=== PATIENT | female | born 1985 | race Hispanic/Latino ===

== ENCOUNTER → 2018-01-01 | Outpatient (CLI) | payer MEDICAID ==
[~2018-01-01] MED LIST: DOCO200C5 PO
== END | disposition home or self-care (01) ==
LOC: RAH 10:31
PROVIDERS: ATTEND Family Medicine
DX: R10.9 Unspecified abdominal pain (principal)
CPT/HCPCS: 76700

== ENCOUNTER → 2018-01-21 | Outpatient (CLI) | payer MEDICAID | END | disposition home or self-care (01) | LOC: RAH 11:14 | PROVIDERS: ATTEND Family Medicine | DX: N21.1 Calculus in urethra (principal) | CPT/HCPCS: 74018 ==

== ENCOUNTER 2018-02-01 00:36 | Emergency (ER) | payer MEDICAID ==
[2018-02-01 01:18] LABS: APPEARANCE,URINE Clear (CLEAR); BILIRUBIN,URINE Negative (NEGATIVE); COLOR,URINE STRAW (YELLOW); GLUCOSE, URINE (UA) Negative (NEGATIVE); HCG,QUAL RESULT POSITIVE (NEGATIVE); KETONES,URINE Negative (NEGATIVE); LEUKOCYTE ESTERASE ,URINE Negative (NEGATIVE); NITRATE,URINE Negative (NEGATIVE); OCCULT BLOOD,URINE Trace (NEGATIVE); PROTEIN,URINE Negative (NEGATIVE); UROBILINOGEN,URINE 0.2 mg/dL (0.2-1.0)
[2018-02-01 01:22] LABS: AMPHET/METH SCREEN,URINE NEGATIVE (NEGATIVE); BARBITURATE SCREEN, URINE NEGATIVE (NEGATIVE); BENZODIAZEPINES SCREEN,URINE NEGATIVE (NEGATIVE); CANNABINOID SCREEN,URINE NEGATIVE (NEGATIVE); COCAINE SCREEN,URINE NEGATIVE (NEGATIVE); OPIATE SCREEN,URINE NEGATIVE (NEGATIVE); PHENCYCLIDINE SCREEN,URINE NEGATIVE (NEGATIVE)
[2018-02-01 01:31] LABS: BACTERIA,URINE Rare /HPF (None Seen); RBC,URINE None Seen /HPF (0-1); SQUAMOUS EPITHELIAL CELL,UR 0-2 /LPF (0-2); WBC,URINE 0-1 /HPF (0-1)
[2018-02-01 01:46] LABS: HEMATOCRIT 40.2 % (36-48); MEAN CORPUSCULAR HEMOGLOBIN 31.1 pg (27.0-33.0); MEAN CORPUSCULAR HGB CONC 34.2 g/dL (32.0-36.0); MEAN CORPUSCULAR VOLUME 90.8 fL (79-99); PLATELET COUNT (AUTO) 281 K/uL (130-400); RED BLOOD CELL COUNT(AUTO) 4.42 MIL/uL (4.00-5.50); RED CELL DISTRIBUTION WIDTH 12.5 % (11.0-15.5); WHITE BLOOD COUNT (AUTO) 9.1 K/uL (4.8-10.8)
[2018-02-01 01:54] LABS: CREATININE 0.6 mg/dL (0.5-1.5); POTASSIUM 3.8 mmol/L (3.5-5.1)
[2018-02-01 02:04] LABS: ALBUMIN 3.5 g/dL (3.5-5.0); BILIRUBIN,TOTAL 0.2 mg/dL (0.2-1.0)
[2018-02-01 02:06] LABS: LYMPHOCYTES % (MANUAL) 20 % (22-44); MAN.DIFF COMMENT-IMPRESSION MANUAL DIFFERENTIAL; MONOCYTES % (MANUAL) 4 % (2-9); SEGMENTED NEUTROPHILS % 76 % (40-70)
[2018-02-01 02:07] LABS: PLATELET MORPHOLOGY COMMENT ADEQUATE
== END 2018-02-01 03:55 | disposition home or self-care (01) ==
LOC: EDH 00:36
DX: O20.0 Threatened abortion (principal); O99.331 Smoking (tobacco) complicating pregnancy, first trimester; Z3A.01 Less than 8 weeks gestation of pregnancy
CPT/HCPCS: 36415; 76801; 80053; 80305; 81001; 81025; 83033; 84702; 85025; 86900; 86901; 99285; J2791

== ENCOUNTER 2018-02-03 13:39 | Emergency (ER) | payer MEDICAID ==
[2018-02-03 14:49] LABS: BASOPHILS % (AUTO) 0.4 % (0.0-5.0); EOSINOPHILS % (AUTO) 0.4 % (0.0-8.0); HEMATOCRIT 39.3 % (36-48); LYMPHOCYTES % (AUTO) 17.3 % (21.0-51.0); MEAN CORPUSCULAR HEMOGLOBIN 31.7 pg (27.0-33.0); MEAN CORPUSCULAR HGB CONC 35.1 g/dL (32.0-36.0); MEAN CORPUSCULAR VOLUME 90.5 fL (79-99); MONOCYTES % (AUTO) 5.9 % (3.0-13.0); PLATELET COUNT (AUTO) 316 K/uL (130-400); RED BLOOD CELL COUNT(AUTO) 4.35 MIL/uL (4.00-5.50); RED CELL DISTRIBUTION WIDTH 12.7 % (11.0-15.5); WHITE BLOOD COUNT (AUTO) 8.4 K/uL (4.8-10.8)
[2018-02-03] MEDS ORDERED: SODIUM CHLORIDE 0.9% 1000ML 1,000 ML IV ONE (14:49)
[2018-02-03] MEDS ORDERED: ONDANSETRON HCL MDV 20ML 2 MG/ML VIAL ONE (14:49)
[2018-02-03] MEDS ORDERED: MORPHINE SULFATE 4 MG/1ML SYG ONE (14:49)
[2018-02-03 15:01] LABS: CREATININE 0.6 mg/dL (0.5-1.5); POTASSIUM 3.9 mmol/L (3.5-5.1)
[2018-02-03 15:27] LABS: HCG,QUAL RESULT POSITIVE (NEGATIVE)
[2018-02-03 15:30] LABS: APPEARANCE,URINE Clear (CLEAR); BILIRUBIN,URINE Negative (NEGATIVE); COLOR,URINE Yellow (YELLOW); GLUCOSE, URINE (UA) Negative (NEGATIVE); KETONES,URINE Negative (NEGATIVE); LEUKOCYTE ESTERASE ,URINE Negative (NEGATIVE); NITRATE,URINE Negative (NEGATIVE); OCCULT BLOOD,URINE Large (NEGATIVE); PH,URINE 6.5 (5.0-8.0); PROTEIN,URINE Negative (NEGATIVE); UROBILINOGEN,URINE 0.2 mg/dL (0.2-1.0)
[2018-02-03 15:47] LABS: BACTERIA,URINE Few /HPF (None Seen)
[2018-02-04] MEDS ORDERED: DOCO200C5 PO (13:19)
== END 2018-02-03 17:57 | disposition home or self-care (01) ==
LOC: EDH 13:39
DX: O20.9 Hemorrhage in early pregnancy, unspecified (principal); R10.2 Pelvic and perineal pain; O99.331 Smoking (tobacco) complicating pregnancy, first trimester; Z3A.01 Less than 8 weeks gestation of pregnancy
CPT/HCPCS: 36415; 76817; 80048; 81001; 81025; 84702; 85025; 96361; 96374; 96375; 99285; J2270; J7030

== ENCOUNTER 2018-02-04 12:07 | Day surgery (SDC) | payer MEDICAID ==
[2018-02-04] VITALS (17 sets, daily range): BP systolic 109–148; BP diastolic 59–84
[~2018-02-04] VITALS: Ht 157.5 cm; Wt 84.4 kg
[2018-02-04] MEDS ORDERED: FLU VACC QS2017-18 36MOS UP/PF 60 MCG/0.5 ML ML IM ONE ×2 (12:30→23:30)
[2018-02-04] MEDS ORDERED: DOCO200C5 PO (13:19)
[2018-02-04] MEDS ORDERED: LIDOCAINE PF 2% 5ML ABBOJECT ONE (16:01)
[2018-02-04] MEDS ORDERED: SODIUM CHLORIDE 0.9% 10 ML VIAL ONE (16:01)
[2018-02-04] MEDS ORDERED: DEXAMETHASONE SOD PHOSPHATE 10MG/ML 1ML VIAL ONE (16:01)
[2018-02-04] MEDS ORDERED: NEOSTIGMINE METHYLSULFATE 1MG/ML IV ONE (16:01)
[2018-02-04] MEDS ORDERED: ONDANSETRON HCL MDV 20ML 2 MG/ML VIAL ONE (16:01)
[2018-02-04] MEDS ORDERED: GLYCOPYRROLATE 0.2 MG/ML 5 ML VIAL ONE (16:01)
[2018-02-04] MEDS ORDERED: LIDOCAINE HCL MPF 1% 5ML VIAL ONE (16:01)
[2018-02-04 16:02] LABS: HEMATOCRIT 38.7 % (36-48); MEAN CORPUSCULAR HEMOGLOBIN 30.6 pg (27.0-33.0); MEAN CORPUSCULAR HGB CONC 34.2 g/dL (32.0-36.0); MEAN CORPUSCULAR VOLUME 89.6 fL (79-99); PLATELET COUNT (AUTO) 325 K/uL (130-400); RED BLOOD CELL COUNT(AUTO) 4.32 MIL/uL (4.00-5.50); RED CELL DISTRIBUTION WIDTH 12.8 % (11.0-15.5); WHITE BLOOD COUNT (AUTO) 7.6 K/uL (4.8-10.8)
[2018-02-04] MEDS ORDERED: LIDOCAINE HCL 2% JELLY 5 ML ONE (16:02)
[2018-02-04] MEDS ORDERED: LIDOCAINE HCL 4% LTA SOL 4 ML VIAL ONE (16:02)
[2018-02-04] MEDS ORDERED: PROPOFOL 10 MG/ML 20ML VIAL IV ONE (16:02)
[2018-02-04] MEDS ORDERED: MIDAZOLAM HCL 1 MG/ML 2ML VIAL ONE (16:02)
[2018-02-04] MEDS ORDERED: ROCURONIUM BROMIDE 10MG/1ML 5ML VL ONE (16:02)
[2018-02-04] MEDS ORDERED: FENTANYL CITRATE PF 50 MCG/1 ML 5ML AMP IV ONE (16:02)
[2018-02-04] MEDS ORDERED: PROMETHAZINE HCL 25 MG/ML 1ML AMPULE IM ONE (17:07)
[2018-02-04] MEDS ORDERED: MEPERIDINE-PF 25 MG/ML SYG ONE ×2 (17:07→17:28)
[2018-02-04] MEDS ORDERED: ACETAMINOPHEN-CODEINE 300/30MG TAB PO PRN (18:00)
[2018-02-04] MEDS: MEPERIDINE-PF 50 MG/ML SYG IM SCH ×2 (20:37→23:41)
[2018-02-05] MEDS ORDERED: FLU VACC QS2017-18 36MOS UP/PF 60 MCG/0.5 ML ML IM ONE (10:00)
== END 2018-02-04 23:37 | disposition home or self-care (01) ==
LOC: DAH 12:07 → WSH 12:15 → DAH 23:37
PROVIDERS: ATTEND Obstetrics & Gynecology
DX: O00.101 Right tubal pregnancy without intrauterine pregnancy (principal); Z79.899 Other long term (current) drug therapy
CPT/HCPCS: 36415; 59151; 85027; 86850; 86870; 86900; 86901; 88305; A4215; A4344; A4510; A4606; A4649 ×3; A4930; C1769 ×3; J1100; J2001; J2175 ×3; J2250; J2550; J2704; J2710; J3010; J3490 ×3; J7120; Q2038

== ENCOUNTER 2018-09-30 13:41 | Emergency (ER) | payer MEDICAID ==
[2018-09-30 14:47] LABS: BASOPHILS % (AUTO) 0.7 % (0.0-5.0); EOSINOPHILS % (AUTO) 0.8 % (0.0-8.0); HEMATOCRIT 43.1 % (36-48); LYMPHOCYTES % (AUTO) 27.4 % (21.0-51.0); MEAN CORPUSCULAR HEMOGLOBIN 31.5 pg (27.0-33.0); MEAN CORPUSCULAR HGB CONC 33.7 g/dL (32.0-36.0); MEAN CORPUSCULAR VOLUME 93.4 fL (79-99); MONOCYTES % (AUTO) 5.7 % (3.0-13.0); NEUTROPHILS % (AUTO) 65.4 % (40.0-77.0); PLATELET COUNT (AUTO) 240 K/uL (130-400); RED BLOOD CELL COUNT(AUTO) 4.61 MIL/uL (4.00-5.50); RED CELL DISTRIBUTION WIDTH 13.1 % (11.0-15.5); WHITE BLOOD COUNT (AUTO) 5.3 K/uL (4.8-10.8)
[2018-09-30 14:58] LABS: CREATININE 0.8 mg/dL (0.5-1.5); POTASSIUM 3.6 mmol/L (3.5-5.1)
[2018-09-30 15:05] LABS: APPEARANCE,URINE Clear (CLEAR); BILIRUBIN,URINE Negative (NEGATIVE); COLOR,URINE Dark Yellow (YELLOW); GLUCOSE, URINE (UA) Negative (NEGATIVE); KETONES,URINE Trace mg/dL (NEGATIVE); LEUKOCYTE ESTERASE ,URINE Negative (NEGATIVE); NITRATE,URINE Negative (NEGATIVE); OCCULT BLOOD,URINE Moderate (NEGATIVE); PROTEIN,URINE Negative (NEGATIVE)
[2018-09-30 15:06] LABS: ALBUMIN 3.7 g/dL (3.5-5.0); BILIRUBIN,TOTAL 0.5 mg/dL (0.2-1.0); TOTAL PROTEIN, SERUM 7.2 g/dL (6.0-8.3)
[2018-09-30] MEDS ORDERED: ACETAMINOPHEN 325 MG TAB ONE (15:07)
[2018-09-30 15:40] LABS: BACTERIA,URINE Few /HPF (None Seen); RBC,URINE None Seen /HPF (0-1)
[2018-09-30 15:41] LABS: CALCIUM OXALATE CRYSTALS,UR Few /LPF (None Seen); MUCUS,URINE Many LPF (None Seen)
== END 2018-09-30 16:04 | disposition home or self-care (01) ==
LOC: EDH 13:41
DX: S30.1XXA Contusion of abdominal wall, initial encounter (principal); S40.011A Contusion of right shoulder, initial encounter; F12.10 Cannabis abuse, uncomplicated; Z72.0 Tobacco use; W51.XXXA Accidental striking against or bumped into by another person, initial encounter; Y93.89 Activity, other specified; Y92.098 Other place in other non-institutional residence as the place of occurrence of the external cause; Y99.8 Other external cause status
CPT/HCPCS: 36415; 76817; 80053; 81001; 84702; 85025; 86900; 86901

== ENCOUNTER 2019-02-01 14:39 | Emergency (ER) | payer MEDICAID ==
[2019-02-01] MEDS ORDERED: HYDROXYZINE HCL 25 MG TABLET ONE (15:34)
== END 2019-02-01 16:16 | disposition home or self-care (01) ==
LOC: EDH 14:39
DX: F41.1 Generalized anxiety disorder (principal); F32.9 Major depressive disorder, single episode, unspecified; F98.8 Other specified behavioral and emotional disorders with onset usually occurring in childhood and adolescence; Z72.0 Tobacco use

== ENCOUNTER 2019-04-28 17:55 | Emergency (ER) | payer MEDICAID ==
[2019-04-28] MEDS ORDERED: AMOXICILLIN/POTASSIUM CLAV 875-125 TABLET PO ONE (18:59)
[2019-04-28] MEDS ORDERED: TETANUS/DIPHTHERIA TOXOID [ADULT] 0.5 ML VIAL IM ONE (19:00)
== END 2019-04-28 19:09 | disposition home or self-care (01) ==
LOC: EDH 17:55
DX: S01.81XA Laceration without foreign body of other part of head, initial encounter (principal); F41.9 Anxiety disorder, unspecified; F32.9 Major depressive disorder, single episode, unspecified; W54.0XXA Bitten by dog, initial encounter; Y93.89 Activity, other specified; Y92.098 Other place in other non-institutional residence as the place of occurrence of the external cause; Y99.8 Other external cause status
CPT/HCPCS: 90471; 90714

== ENCOUNTER 2023-02-15 15:01 | Emergency (ER) | payer BC, OTHER ==
[~2023-02-15] VITALS: Ht 160 cm; Wt 73.9 kg
[2023-02-15 15:47] LABS: BASOPHILS % (AUTO) 0.7 % (0.0-5.0); EOSINOPHILS % (AUTO) 1.2 % (0.0-8.0); HEMATOCRIT 41.5 % (36-48); MEAN CORPUSCULAR HGB CONC 32.5 g/dL (32.0-36.0); MEAN CORPUSCULAR VOLUME 92.2 fL (79-99); MONOCYTES % (AUTO) 6.3 % (3.0-13.0); NEUTROPHILS % (AUTO) 63.5 % (40.0-77.0); PLATELET COUNT (AUTO) 300 K/uL (130-400); RED CELL DISTRIBUTION WIDTH 12.3 % (11.0-15.5); WHITE BLOOD COUNT (AUTO) 5.9 K/uL (4.8-10.8)
[2023-02-15 16:43] LABS: CREATININE 0.6 mg/dL (0.5-1.5)
[2023-02-15 16:48] LABS: ALBUMIN 3.3 g/dL (3.5-5.0); TOTAL PROTEIN, SERUM 6.2 g/dL (6.0-8.3)
[2023-02-15 17:45] VITALS: BP 122/64
== END 2023-02-15 18:50 | disposition home or self-care (01) ==
LOC: EDH 15:01
DX: T78.49XA Other allergy, initial encounter (principal); R07.89 Other chest pain; Z20.822 Contact with and (suspected) exposure to COVID-19; Z98.890 Other specified postprocedural states; X58.XXXA Exposure to other specified factors, initial encounter
CPT/HCPCS: 99285; 71045; 87635; 84484; 80053; 85025; 87804 ×2; 81025; 36415; 93005; C9803

== ENCOUNTER 2023-10-06 08:09 | Emergency (ER) | payer OTHER ==
[~2023-10-06] VITALS: Ht 162.6 cm; Wt 81.6 kg
[2023-10-06 08:13] VITALS: BP 120/80; PULSE 67; RESP 20
[2023-10-06 09:10] LABS: SARS-CoV-2, RNA, NAAT POSITIVE SARS CoV-2 (NEGATIVE)
[2023-10-06 09:13] LABS: BASOPHILS # (AUTO) 0.02 K/uL (0.00-0.20); BASOPHILS % (AUTO) 0.4 % (0.0-5.0); EOSINOPHILS # (AUTO) 0.09 K/uL (0.00-0.70); EOSINOPHILS % (AUTO) 1.9 % (0.0-8.0); HEMATOCRIT 42.5 % (36-48); IMMATURE GRANULOCYTE ABSOLUTE 0.01 K/uL (0-1); LYMPHOCYTES % (AUTO) 41.2 % (21.0-51.0); MEAN CORPUSCULAR HEMOGLOBIN 30.2 pg (27.0-33.0); MEAN CORPUSCULAR HGB CONC 32.7 g/dL (32.0-36.0); MEAN CORPUSCULAR VOLUME 92.2 fL (79-99); MONOCYTES # (AUTO) 0.4 K/uL (0.1-1.0); MONOCYTES % (AUTO) 7.8 % (3.0-13.0); NEUTROPHILS # (AUTO) 2.3 K/uL (1.8-7.7); NEUTROPHILS % (AUTO) 48.5 % (40.0-77.0); PLATELET COUNT (AUTO) 257 K/uL (130-400); RED BLOOD CELL COUNT(AUTO) 4.61 MIL/uL (4.00-5.50); RED CELL DISTRIBUTION WIDTH 12.2 % (11.0-15.5); WHITE BLOOD COUNT (AUTO) 4.7 K/uL (4.8-10.8)
[2023-10-06 09:17] LABS: INFLUENZA TYPE A Negative For Type A (NEGATIVE); INFLUENZA TYPE B Negative For Type B (NEGATIVE)
[2023-10-06 09:18] LABS: CREATININE 0.5 mg/dL (0.5-1.5); POTASSIUM 3.7 mmol/L (3.5-5.1)
[2023-10-06 09:23] LABS: ALBUMIN 3.2 g/dL (3.5-5.0); BILIRUBIN,TOTAL 0.2 mg/dL (0.2-1.0); TOTAL PROTEIN, SERUM 6.6 g/dL (6.0-8.3)
[2023-10-06] MEDS ORDERED: METH4TAB3 PO (13:51)
[2023-10-06] MEDS ORDERED: SOLU-MEDROL 125MG VIAL IM ONE (14:00)
== END 2023-10-06 14:00 | disposition home or self-care (01) ==
LOC: EDH 08:09
DX: U07.1 COVID-19 (principal); J06.9 Acute upper respiratory infection, unspecified; R05.9 Cough, unspecified; M94.0 Chondrocostal junction syndrome [Tietze]; F41.9 Anxiety disorder, unspecified
CPT/HCPCS: 99285; 71045; 87635; 84484; 80053; 85025; 87804 ×2; 36415; 93005; C9803

== ENCOUNTER 2024-05-13 17:23 | Emergency (ER) | payer BC, OTHER ==
[~2024-05-13] VITALS: Ht 160 cm; Wt 83.5 kg
[~2024-05-13 17:23] MED LIST changes: +METH4TAB3 PO
[2024-05-13] MEDS: TRIAMCINOLONE ACETONIDE 40 MG/ML 1ML VIAL IM ONE (18:35)
[2024-05-13] MEDS: KETOROLAC 30MG VIAL (30MG/ML) IM ONE (18:36)
[2024-05-13] MEDS: ORPHENADRINE CITRATE 30 MG/ML ML IM ONE (18:36)
[2024-05-13] MEDS ORDERED: METH-662 PO (19:25)
[2024-05-13] MEDS ORDERED: KETO10TA2 PO (19:25)
[2024-05-13 19:44] VITALS: BP 132/77; PULSE 82; RESP 16; O2SAT 99
== END 2024-05-13 19:45 | disposition home or self-care (01) ==
LOC: EDH 17:23
DX: S29.012A Strain of muscle and tendon of back wall of thorax, initial encounter (principal); S16.1XXA Strain of muscle, fascia and tendon at neck level, initial encounter; F41.9 Anxiety disorder, unspecified; Z79.899 Other long term (current) drug therapy; Z98.890 Other specified postprocedural states; X58.XXXA Exposure to other specified factors, initial encounter; Y93.89 Activity, other specified; Y92.89 Other specified places as the place of occurrence of the external cause; Y99.8 Other external cause status
CPT/HCPCS: 99285; 70450; 81025; 72125; 96372 ×3; J3301; J1885; J2360